=== PATIENT | female | born 1945 | race Caucasian/White ===

== ENCOUNTER 2018-05-09 19:26 | Emergency (ER) | payer MEDICARE, OTHER ==
[2018-05-09] MEDS ORDERED: DIPHTH,PERTUSS(ACELL),TET TOX 0.5 ML DISP.SYRIN. VAX IM ONE (19:45)
--- NOTE | 2018-05-09 20:05 | PHYS DOC ---
Past History Past Medical History: Anxiety, COPD, GERD Past Surgical History: Hip Replacement Smoking: Quit Greater Than 1 Year Adult General Chief Complaint Chief Complaint: MECHANICAL FALL HPI HPI Patient is a 73-year-old female who presents to the emergency department for evaluation. She was at her assisted living facility, when she tried to pull up her pants, and she slid off the toilet, and struck the right side of her head on the toilet. She did not have a loss of consciousness. She also sustained a skin tear, on the right lateral/posterior aspect of her right knee. She denies any other injuries or pain. She is uncertain of her last tetanus immunization. She denies any headache or neck pain, upper extremity injury or wounds, chest pain, or shortness of breath different than her baselinethe patient is on oxygen chronically due to COPD. She has no back pain, or any other extremity pain. Upon arrival to the emergency department, the patient's gait was tested and she is able to ambulate with the use of a walker, which she normally uses to ambulate, with a stable gait without any significant pain. She has no other complaints at this time. Review of Systems Review of Systems Constitutional: Denies fever or chills [] Respiratory: Denies cough or new shortness of breath [] Cardiovascular:The patient denies any chest pain, palpitations, or orthopnea[] GI: Denies abdominal pain [] Musculoskeletal: Denies back pain or joint pain [] Integument: Denies rash or skin lesions [] Neurologic: Denies headache, focal weakness or sensory changes [] Current Medications Current Medications Current Medications Medications (Trade) Dose Ordered Sig/Ethan Start Time Stop Time Status Last Admin Dose Admin Diphtheria/ Tetanus/Acell Pertussis (Boostrix) 0.5 ml ONCE ONCE 05/09/18 19:45 05/09/18 19:46 UNV Physical Exam Physical Exam PHYSICAL EXAM: CONSTITUTIONAL: Well developed, well nourished HEAD: normocephalic, atraumatic EENT: PERRL, EOMI. Conjunctivae normal color, sclerae non-icteric; moist mucous membranes. NECK: Supple, non-tender; no meningismus. There is full, painless range of motion of the cervical spine, without any focal bony midline tenderness to palpation. LUNGS: Breath sounds are globally diminished, without any wheezes, rales, or rhonchi, breathing even and unlabored. HEART: Regular rate and rhythm, no murmur CHEST: No deformity; non-tender ABDOMEN: The abdomen is soft, and non-tender, no masses or bruits. EXTREM: Normal ROM; no deformity, no calf tenderness. Normal pulses palpable in all extremities. There is no pedal edema. There is a superficial abrasion/skin tear on the right lateral distal upper leg, overlying the lateral hamstring tendon. The tendon appears intact and is nontender. There is no bony tenderness to palpation to the right leg, with normal range of motion. The hips and pelvis are nontender. The volar surface of the right hand, overlying the hyperthenar eminence, there is a small 1/2 cm circular intradermal skin tear. There is no associated bony tenderness to palpation. The remainder the extremities are atraumatic. SKIN: No rash; no diaphoresis NEURO: Alert; normal speech and cognition; CN's grossly intact; strength grossly intact without focal deficit. BACK: No CVA TTP.There is no bony tenderness to palpation of the thoracic or lumbar spine. EKG EKG [] Radiology/Procedures Radiology/Procedures [PROCEDURE: CT HEAD WO CONTRAST Exam performed: CT scan of the head without contrast. Date of Service: 05/09/2018. Comparison: None available. Clinical History: Patient fell and hit head. Technique: Helical acquisitions are obtained from the foramen magnum to the vertex without intravenous administration of contrast. Findings: Prominence of cortical sulci and ventricular system is noted consistent with mild age-related atrophy. There are areas of low-attenuation in both periventricular and subcortical deep white matter suggesting small vessel ischemic changes Normal godinez-white differentiation is maintained. There is no extra axial fluid collection, intraparenchymal hemorrhage or mass lesion. The visualized portions of the orbits, paranasal sinuses and the mastoid air cells appear clear. The calvarium is intact. Impression: 1. No acute intracranial process detected. 2. Age-related atrophy is noted ] Course & Med Decision Making Course & Med Decision Making Pertinent Imaging studies reviewed. (See chart for details) 8:15 PM:Patient remains stable. I discussed test results, the need for close follow-up, and return precautions. Dragon Disclaimer Dragon Disclaimer This electronic medical record was generated, in whole or in part, using a voice recognition dictation system. Departure Departure: Impression: Primary Impression: Closed head injury Additional Impressions: Accidental fall Skin tear Disposition: 01 HOME, SELF-CARE Condition: STABLE Patient Instructions: Fall Prevention and Home Safety, Head Injury, Adult, Skin Tear Care Additional Instructions: Return to medical care for any new, or worsening symptoms, development of increasing headache, lethargy, or any other new, or concerning symptoms. Problem Qualifiers DEMARCUS FORTUNE MD May 09, 2018 20:05
--- NOTE | 2018-05-09 20:08 | RAD ---
Exam performed: CT scan of the head without contrast. Date of Service: 05/09/2018. Comparison: None available. Clinical History: Patient fell and hit head. Technique: Helical acquisitions are obtained from the foramen magnum to the vertex without intravenous administration of contrast. Findings: Prominence of cortical sulci and ventricular system is noted consistent with mild age-related atrophy. There are areas of low-attenuation in both periventricular and subcortical deep white matter suggesting small vessel ischemic changes Normal godinez-white differentiation is maintained. There is no extra axial fluid collection, intraparenchymal hemorrhage or mass lesion. The visualized portions of the orbits, paranasal sinuses and the mastoid air cells appear clear. The calvarium is intact. Impression: 1. No acute intracranial process detected. 2. Age-related atrophy is noted PQRS Compliance Statement: One or more of the following individualized dose reduction techniques were utilized for this examination: 1. Automated exposure control 2. Adjustment of the mA and/or kV according to patient size 3. Use of iterative reconstruction technique Electronically signed by: Magnolia Meraz MD (05/09/2018 8:05 PM) [facility]
[2018-05-09 22:33] VITALS: BP 115/62
== END 2018-05-09 20:30 | disposition home or self-care (01) ==
LOC: ER 19:26
DX: S09.90XA Unspecified injury of head, initial encounter (principal); S71.111A Laceration without foreign body, right thigh, initial encounter; F41.9 Anxiety disorder, unspecified; J44.9 Chronic obstructive pulmonary disease, unspecified; K21.9 Gastro-esophageal reflux disease without esophagitis; Z87.891 Personal history of nicotine dependence; W01.198A Fall on same level from slipping, tripping and stumbling with subsequent striking against other object, initial encounter; Y93.89 Activity, other specified; Y92.89 Other specified places as the place of occurrence of the external cause; Y99.8 Other external cause status
CPT/HCPCS: 70450; 90471; 90715; 99284-25

== ENCOUNTER 2018-05-20 09:24 | Emergency (ER) | payer MEDICARE, OTHER ==
[2018-05-20 09:24] VITALS: BP 147/73
[2018-05-20] MEDS ORDERED: IV NORMAL SALINE 1,000ML 1,000 ML IV SCH (09:33)
[2018-05-20] MEDS ORDERED: IPRATRPIUM/ALBUTEROL 0.5/2.5MG 3 ML NEBU. NEB ONE (09:45)
[2018-05-20] MEDS ORDERED: methylPREDNISolone SOD SUCC PF 125 MG/2 ML VIAL. IV ONE (09:45)
[2018-05-20 10:00] LABS: BASO # 0.1 x10^3/uL (0.0-0.2); BASO % 1 % (0-3); EOS # 0.1 x10^3/uL (0.0-0.7); EOS % 1 % (0-3); HEMATOCRIT 37.1 % (36.0-47.0); LYMPH # 0.6 x10^3/uL (1.0-4.8); LYMPH % 8 % (24-48); MEAN CORPUSCULAR HEMOGLOBIN 29 pg (25-35); MEAN CORPUSCULAR HGB CONC 32 g/dL (31-37); MEAN CORPUSCULAR VOLUME 89 fL (79-100); MONO # 0.6 x10^3/uL (0.0-1.1); MONO % 8 % (0-9); NEUT # 6.1 x10^3uL (1.8-7.7); NEUT % 82 % (31-73); PLATELET COUNT 218 x10^3/uL (140-400); RED BLOOD COUNT 4.16 x10^6/uL (3.50-5.40); RED CELL DISTRIBUTION WIDTH 14.9 % (11.5-14.5); WHITE BLOOD COUNT 7.4 x10^3/uL (4.0-11.0)
--- NOTE | 2018-05-20 10:08 | RAD ---
EXAM: CHEST 1 VIEW. HISTORY: Shortness of breath. COMPARISON: None. FINDINGS: A frontal view of the chest is obtained. Hyperinflation is consistent with chronic obstructive pulmonary disease. There is mild atelectasis or scarring in the right base. There is no pneumothorax or pleural effusion. The heart is not enlarged. There are atherosclerotic calcifications of the aorta. IMPRESSION: 1. Chronic obstructive pulmonary disease. No confluent infiltrates. Electronically signed by: Danyelle Buckner MD (05/20/2018 10:05 AM) [facility]
--- NOTE | 2018-05-20 10:18 | PHYS DOC ---
Past History Past Medical History: Anxiety, COPD, GERD Past Surgical History: Hip Replacement Smoking: Quit Greater Than 1 Year Alcohol Use: None Drug Use: None Adult General Chief Complaint Chief Complaint: SHORTNESS OF BREATH HPI HPI Patient is a 73 year old female who brought in by EMS from [facility] because of shortness of breath. Patient has history of COPD on 2 L of oxygen and complaining of cough for a couple days and increasing shortness of breath since yesterday without chest pain, fever and chills, nausea and vomiting. Patient had acute respiratory distress at arrival to ER with tachypnea and tachycardia and history was limited. Review of Systems Review of Systems Constitutional: Denies fever or chills [] Eyes: Denies change in visual acuity, redness, or eye pain [] HENT: Denies nasal congestion or sore throat [] Respiratory: Reports cough and shortness of breath. Cardiovascular: No additional information not addressed in HPI [] GI: Denies abdominal pain, nausea, vomiting, bloody stools or diarrhea [] : Denies dysuria or hematuria [] Musculoskeletal: Denies back pain or joint pain [] Integument: Denies rash or skin lesions [] Neurologic: Denies headache, focal weakness or sensory changes [] Endocrine: Denies polyuria or polydipsia [] All other systems were reviewed and found to be within normal limits, except as documented in this note. Current Medications Current Medications Current Medications Medications (Trade) Dose Ordered Sig/Ethan Start Time Stop Time Status Last Admin Dose Admin Albuterol/ Ipratropium (Duoneb) 3 ml 1X ONCE 05/20/18 09:45 05/20/18 09:46 DC Ceftriaxone Sodium 1 gm/ Sodium Chloride 50 ml @ 100 mls/hr 1X ONCE 05/20/18 10:15 05/20/18 10:44 Methylprednisolone Sodium Succinate (SOLU-Medrol 125MG VIAL) 125 mg 1X ONCE 05/20/18 09:45 05/20/18 09:46 DC 05/20/18 09:45 125 MG Sodium Chloride 1,000 ml @ 1,000 mls/hr Q1H 05/20/18 09:33 05/20/18 10:32 05/20/18 09:33 1,000 MLS/HR Allergies Allergies Allergies Coded Allergies Type Severity Reaction Last Updated Verified lorazepam Allergy Unknown 05/09/18 Yes Physical Exam Physical Exam Constitutional: Well developed, moderate distress, non-toxic appearance. [] HENT: Normocephalic, atraumatic, oropharynx dry, no oral exudates, nose normal. [] Eyes: PERRLA, EOMI, conjunctiva normal, no discharge. [] Neck: Normal range of motion, no tenderness, supple, no stridor. [] Cardiovascular: Tachycardia, no murmur [] Lungs & Thorax: Mild respiratory distress with intercostal retraction and tachypnea, decrease of air movement, bilateral rhonchi Abdomen: Bowel sounds normal, soft, no tenderness, no masses, no pulsatile masses. [] Skin: Warm, dry, no erythema, no rash. [] Back: No tenderness, no CVA tenderness. [] Extremities: No tenderness, no cyanosis, no clubbing, ROM intact, no edema. [] Neurologic: Alert and oriented X 3, normal motor function, normal sensory function, no focal deficits noted. [] Psychologic: Affect normal, judgement normal, mood normal. [] Current Patient Data Lab Results Laboratory Tests Test 05/20/18 09:34 White Blood Count 7.4 x10^3/uL (4.0-11.0) Red Blood Count 4.16 x10^6/uL (3.50-5.40) Hemoglobin 12.0 g/dL (12.0-15.5) Hematocrit 37.1 % (36.0-47.0) Mean Corpuscular Volume 89 fL (79-100) Mean Corpuscular Hemoglobin 29 pg (25-35) Mean Corpuscular Hemoglobin Concent 32 g/dL (31-37) Red Cell Distribution Width 14.9 % (11.5-14.5) H Platelet Count 218 x10^3/uL (140-400) Neutrophils (%) (Auto) 82 % (31-73) H Lymphocytes (%) (Auto) 8 % (24-48) L Monocytes (%) (Auto) 8 % (0-9) Eosinophils (%) (Auto) 1 % (0-3) Basophils (%) (Auto) 1 % (0-3) Neutrophils # (Auto) 6.1 x10^3uL (1.8-7.7) Lymphocytes # (Auto) 0.6 x10^3/uL (1.0-4.8) L Monocytes # (Auto) 0.6 x10^3/uL (0.0-1.1) Eosinophils # (Auto) 0.1 x10^3/uL (0.0-0.7) Basophils # (Auto) 0.1 x10^3/uL (0.0-0.2) EKG EKG EKG interpreted by me. EKG at 1021 showed sinus tachycardia at rate of 112, poor R-wave progress in her septal leads, no acute ST and T-wave abnormalities Radiology/Procedures Radiology/Procedures [address] [id number] IMAGING REPORT Signed PATIENT: CHARLEE LUTZ ACCOUNT: [id number] : 1945 LOCATION: ER AGE: 73 SEX: F EXAM STATUS: REG ER ORD. PHYSICIAN: JAMES MALLORY MD REASON: SOB PROCEDURE: PORTABLE CHEST 1V EXAM: CHEST 1 VIEW. HISTORY: Shortness of breath. COMPARISON: None. FINDINGS: A frontal view of the chest is obtained. Hyperinflation is consistent with chronic obstructive pulmonary disease. There is mild atelectasis or scarring in the right base. There is no pneumothorax or pleural effusion. The heart is not enlarged. There are atherosclerotic calcifications of the aorta. IMPRESSION: 1. Chronic obstructive pulmonary disease. No confluent infiltrates. Electronically signed by: Danyelle Buckner MD (05/20/2018 10:05 AM) [facility] DICTATED AND SIGNED BY: BIBI BUCKNER MD DATE: 05/20/18 0953 CC: JAMES MALLORY MD; CARLOS JARA APRN ~ Course & Med Decision Making Course & Med Decision Making Pertinent Labs and Imaging studies reviewed. (See chart for details) Evaluation of patient in ER showed 73-year-old female patient with history of COPD on home oxygen brought in from [facility] because of shortness of breath and cough. Patient had respiratory distress and tachycardia without fever in ER. Patient treated with IV fluid, 20, Solu-Medrol and felt better. ABG showed PCO2 of 86 but patient refused to have BiPAP because of anxiety and asking for oral Xanax before having BiPAP. Dr. Oseguera accepted admission at 1013 but patient' s daughter requested transferred to a [facility]. Dr. Vazquez septated transferred to [facility] at 1102. Mis Disclaimer Dragon Disclaimer This electronic medical record was generated, in whole or in part, using a voice recognition dictation system. Departure Departure: Impression: Primary Impression: Acute respiratory distress Additional Impressions: CO2 retention COPD exacerbation Disposition: XFER [facility] (at 1103) Admitting Physician: Juan Antonio Oseguera (accepted admission at 1014) Condition: GUARDED Referrals: CARLOS JARA APRN (PCP) Problem Qualifiers JAMES MALLORY MD May 20, 2018 10:18
[2018-05-20 10:25] LABS: ALBUMIN 2.9 g/dL (3.4-5.0); ALBUMIN/GLOBULIN RATIO 0.7 (1.0-1.7); CALCIUM 9.5 mg/dL (8.5-10.1); CREATININE 0.5 mg/dL (0.6-1.0); GFR 121.6; POTASSIUM 4.9 mmol/L (3.5-5.1); TOTAL BILIRUBIN 0.3 mg/dL (0.2-1.0); TOTAL PROTEIN 7.3 g/dL (6.4-8.2)
--- NOTE | 2018-05-20 10:25 | EKG ---
[address] [address] Test Date: 2018-05-20 Test Time: 10:21:28 Pat Name: CHARLEE LUTZ Department: Room: Gender: F Trigonometry Teacher: : 1945 Requested By: JAMES MALLORY Order Number: [id number] Reading MD: Ozzy Winston MD Measurements Intervals [place] Rate: 112 P: 90 VT: 124 QRS: 74 QRSD: 84 T: 62 QT: 302 QTc: 414 Interpretive Statements SINUS TACHYCARDIA Electronically Signed On 05-23-2018 12:13:43 CDT by Ozzy Winston MD
[2018-05-20 10:36] LABS: BACTERIA,URINE FEW /HPF (0-FEW); BILIRUBIN,URINE NEG (NEG); CLARITY,URINE CLEAR; COLOR,URINE YELLOW; GLUCOSE,URINE NEG (NEG); NITRITE,URINE NEG (NEG); RBC,URINE RARE /HPF (0-2); SQUAMOUS EPITHELIAL CELL,UR MOD /LPF; UROBILINOGEN,URINE 1 mg/dL (0.2 mg/dL)
[2018-05-20] MEDS: ALPRAZolam 0.25 MG TABLET PO ONE (10:45)
[2018-05-20 10:51] LABS: PLT ESTIMATE ADEQUATE (ADEQUATE)
[2018-05-20 10:52] LABS: HYPOCHROMIA SLIGHT; STOMATOCYTES OCC
[2018-05-20] MEDS ORDERED: IV NORMAL SALINE 50ML 50 ML ONE (11:15)
[2018-05-20 11:16] LABS: BGAS PH 7.26 (7.35-7.45)
[2018-05-20] MEDS ORDERED: cefTRIAXone SODIUM 1 GM VIAL IV ONE (11:16)
== END 2018-05-20 13:13 | disposition short-term general hospital (02) ==
LOC: ER 09:24
DX: J44.1 Chronic obstructive pulmonary disease with (acute) exacerbation (principal); R06.03 Acute respiratory distress; E87.2 Acidosis; F41.9 Anxiety disorder, unspecified; K21.9 Gastro-esophageal reflux disease without esophagitis; Z87.891 Personal history of nicotine dependence; Z88.8 Allergy status to other drugs, medicaments and biological substances
CPT/HCPCS: 36415; 71045; 80053; 81001; 82550; 82803; 83605; 83880; 84484; 85025; 87040; 93005; 94640; 96365; 96366; 96375; 99285; J0696; J2930; J7620; J7030